=== PATIENT | male | born 1985 | race Two or more races ===

== ENCOUNTER 2021-06-26 03:09 | Emergency (ER) | payer OTHER ==
[~2021-06-26] VITALS: Ht 167.6 cm; Wt 54.4 kg
[2021-06-26] MEDS ORDERED: KETO10TA2 PO (04:08)
== END 2021-06-26 04:21 | disposition home or self-care (01) ==
LOC: ER 03:09
DX: S80.01XA Contusion of right knee, initial encounter (principal); W18.09XA Striking against other object with subsequent fall, initial encounter; Y93.89 Activity, other specified; Y92.413 State road as the place of occurrence of the external cause; Y99.8 Other external cause status